=== PATIENT | female | born 1960 | race Asian ===

== ENCOUNTER 2017-01-05 12:46 | Outpatient (CLI) | payer OTHER | END 2017-01-05 12:47 | disposition home or self-care (01) | LOC: DI 12:46 | DX: R53.83 Other fatigue (principal); I51.7 Cardiomegaly | CPT/HCPCS: 93306 ==

== ENCOUNTER 2023-07-28 21:58 | Emergency (ER) | payer OTHER ==
[2023-07-28] MEDS ORDERED: oxyCODONE 5 MG TABLET PO STA (22:50)
--- NOTE | 2023-07-29 00:08 | XRAY Report ---
PROCEDURE: Ankle 3 View RT INDICATIONS: glf, lateral ankle pain TECHNIQUE: 3 views of the ankle were acquired. COMPARISON: Right foot plain film same day.. FINDINGS: Bones: No fractures or dislocations. Ankle mortise is normally aligned. No suspicious bony lesions . Soft tissues: No tibiotalar joint effusion. Achilles tendon appears normal. IMPRESSION: No acute bony abnormality at the right ankle. Reviewed by: Rafy Peña MD on 07/29/2023 12:07 AM PST Approved by: Rafy Peña MD on 07/29/2023 12:07 AM PST Station ID: [id number]
--- NOTE | 2023-07-29 00:11 | XRAY Report ---
PROCEDURE: Foot 3 View RT INDICATIONS: glf, top of foot pain TECHNIQUE: 3 views of the foot were acquired. COMPARISON: None. FINDINGS: Bones: No fractures or dislocations. Arthritic change renders accurate assessment of the tarsal-meta tarsal articulations somewhat limited. No suspicious bony lesions. Note is made of a plantar fascial insertion spur at the posterior calcaneus. Soft tissues: No suspicious soft tissue calcifications or masses. IMPRESSION: No definite acute bony abnormality. Degenerative osteoarthritic change at the base of the metatarsal bones renders accurate assessment in that area is somewhat limited. Plantar fascia insertion spurring at the posterior calcaneus incidentally noted. Reviewed by: Rafy Peña MD on 07/29/2023 12:10 AM PST Approved by: Rafy Peña MD on 07/29/2023 12:10 AM PST Station ID: [id number]
--- NOTE | 2023-07-29 00:15 | ED Physician Documentation ---
PD HPI LOWER EXT INJURY - Stated complaint Stated Complaint: FELL/RT LEG/ANKLE INJURY - Chief complaint Chief Complaint: Trauma Ext - History obtained from History obtained from: Patient - Additional information Additional information: 63-year-old female presents from home by private vehicle for right ankle and foot pain after a trip and fall just prior to arrival. 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 She denies hitting her head or loss of consciousness. Reports pain and swelling in her right ankle. She was initially able to bear weight but is now unable to do so without significant pain. Review of Systems Constitutional: denies: Fever, Chills Cardiac: denies: Chest pain / pressure, Palpitations, Calf pain GI: denies: Abdominal Pain, Nausea, Vomiting Musculoskeletal: reports: Joint pain, Joint swelling. denies: Neck pain, Back pain PD PAST MEDICAL HISTORY - Past Medical History Past Medical History: Yes Cardiovascular: High cholesterol HERD TESTER: Fibroids - Past Surgical History Past Surgical History: Yes /HERD TESTER: Hysterectomy HEENT: Tonsil/Adenoidectomy - Present Medications Home Medications: Ambulatory Orders Medication Instructions Recorded Confirmed No Known Home Medications 07/28/23 07/28/23 - Allergies Allergies/Adverse Reactions: Allergies Allergy/AdvReac Type Severity Reaction Status Date / Time No Known Drug Allergies Allergy Verified 07/28/23 22:33 - Social History Does the pt smoke?: Yes Smoking Status: Current every day smoker Does the pt drink ETOH?: Yes ETOH Use: Wine Does the pt have substance abuse?: No - Immunizations Immunizations are current?: No - POLST Patient has POLST: No PD ED PE NORMAL - Vitals Vital signs reviewed: Yes - General General: Alert and oriented X 3, No acute distress, Well developed/nourished - HEENT HEENT: Atraumatic - Neck Neck: Supple, no meningeal sign - Cardiac Cardiac: RRR - Respiratory Respiratory: No respiratory distress - Derm Derm: Normal color, Warm and dry, No rash - Extremities Extremities: No deformity, Other (Lateral malleolar tenderness to palpation) - Neuro Neuro: Alert and oriented X 3, 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 Neurovascularly intact, no obvious deformity. X-ray imaging of the foot and ankle were obtained, these were negative for acute fracture. Patient likely sprained the extremity during her fall. She was given a dose of pain medication in the emergency department and placed in Yazan wrap bandage. RICE instructions counseled for home. Gradual return to activity advised. Departure - Departure Disposition: 01 Home, Self Care Clinical Impression: Ankle injury Qualifiers: Encounter type: initial encounter Laterality: right Qualified Code(s): S99.911A - Unspecified injury of right ankle, initial encounter Injury of foot Qualifiers: Encounter type: initial encounter Laterality: right Qualified Code(s): S99.921A - Unspecified injury of right foot, initial encounter Condition: Stable Instructions: ED Sprain Ankle W X Ray Comments: Your x-rays today did not show any break or fracture. Keep the ankle in a splint, gradually return to function as your ankle allows. Take Tylenol and Motrin as needed for pain, apply ice as needed for swelling. Elevate the ankle whenever you are at rest. Forms: PCP List Discharge Date/Time: 07/29/23 00:35
[2023-07-29 00:44] VITALS: BP 151/87; O2SAT 100
== END 2023-07-29 00:35 | disposition home or self-care (01) ==
LOC: ED 21:58
DX: S99.911A Unspecified injury of right ankle, initial encounter (principal); S99.921A Unspecified injury of right foot, initial encounter; W01.0XXA Fall on same level from slipping, tripping and stumbling without subsequent striking against object, initial encounter; Y93.89 Activity, other specified; Y99.0 Civilian activity done for income or pay; F17.200 Nicotine dependence, unspecified, uncomplicated
CPT/HCPCS: 73610; 73630; 99283; A9270

== ENCOUNTER 2023-11-22 10:16 | Outpatient (CLI) | payer OTHER ==
[2023-11-22 10:41] LABS: CHOL/HDL RATIO 3.5 (<4.4); CHOLESTEROL 153 mg/dL; HDL CHOLESTEROL 44 mg/dL; LDL CHOLESTEROL,CALCULATED 75 mg/dL; LDL/HDL RATIO 1.7 (<4.4); TRIGLYCERIDES 171 mg/dL (48-352); VLDL CHOLESTEROL 34 mg/dL
== END 2023-11-22 10:17 | disposition home or self-care (01) ==
LOC: LAB 10:16
PROVIDERS: ATTEND Internal Medicine Cardiovascular Disease
DX: E78.2 Mixed hyperlipidemia (principal); R94.31 Abnormal electrocardiogram [ECG] [EKG]; E78.00 Pure hypercholesterolemia, unspecified; I10 Essential (primary) hypertension
CPT/HCPCS: 36415; 80061; 81599; 83721